=== PATIENT | female | born 1985 | race Caucasian/White ===

== ENCOUNTER 2019-09-07 04:36 | Emergency (ER) | payer MEDICAID ==
[2019-09-07] MEDS ORDERED: KETOROLAC 30 MG/ML VIAL IVP ONE (04:50)
--- NOTE | 2019-09-07 04:56 | Emergency Department Record ---
History of Present Illness - General Chief Complaint: Shortness of breath Stated Complaint: ERNA Time Seen by Provider: 09/07/19 04:49 Source: Patient Mode of Arrival: Ambulatory Limitations: No limitations - History of Present Illness Initial Comments: 34 yo female presents to ED for evaluation of diffuse abdominal pain that began last evening, denies fevers, chills, or recent illness. Patient does report dysuria symptoms, denies nausea, vomiting, or change in stools. Patient denies health problems at her baseline, and denies previous abdominal surgery. MD Complaint: Abdominal pain Onset/Timin -: Hour(s) Location: Diffuse Radiation: None Migration to: No migration Severity: Moderate Quality: Aching Consistency: Constant Improves With: Nothing Worsens With: Nothing Associated Symptoms: Denies other symptoms - Related Data Patient : No Home Medications Medication Instructions Recorded Confirmed Last Taken No Home Med [NO HOME MEDS] 09/07/19 09/07/19 Unknown Allergies Allergy/AdvReac Type Severity Reaction Status Date / Time ibuprofen Allergy ANAPHYLAXIS Verified 09/07/19 04:39 Travel Screening - Travel/Exposure Within Last 30 Days Have you traveled within the last 30 days?: No - Travel/Exposure Within Last Year Have you traveled outside the [place] in the last year?: No - Additonal Travel Details Have you been exposed to anyone with a communicable illness?: No Review of Systems Constitutional: Denies: Chills, Fever, Malaise, Night sweats Eyes: Denies: Eye discharge, Eye pain ENT: Denies: Congestion, Ear pain, Epistaxis Respiratory: Denies: Cough, Dyspnea Cardiovascular: Denies: Chest pain, Dyspnea on exertion Endocrine: Denies: Fatigue, Heat or cold intolerance Gastrointestinal: Reports: Abdominal pain. Denies: Nausea, Vomiting Genitourinary: Denies: Incontinence, Retention Musculoskeletal: Denies: Arthralgia, Back pain Skin: Denies: Bruising, Change in color Neurological: Denies: Abnormal gait, Confusion, Headache, Seizure Psychiatric: Denies: Anxiety Hematological/Lymphatic: Denies: Anemia, Blood Clots Past Medical History - SOCIAL HISTORY Smoking Status: Never smoker Alcohol Use: Rare Drug Use: None - RESPIRATORY Hx Respiratory Disorders: No - CARDIOVASCULAR Hx Cardio Disorders: Yes Comment:: heart murmur - NEURO Hx Neuro Disorders: No - GI Hx GI Disorders: No - Hx Genitourinary Disorders: No - ENDOCRINE Hx Endocrine Disorders: No - MUSCULOSKELETAL Hx Musculoskeletal Disorders: No - PSYCH Hx Psych Problems: No - HEMATOLOGY/ONCOLOGY Hx Hematology/Oncology Disorders: No Family Medical History Any Significant Family History?: No Physical Exam - General General Appearance: Alert, Oriented x3, Cooperative, No acute distress, Other (Smiling, well appearing on examination. Cries however when her abdomen is palpated diffuesely.) Limitations: No limitations - Head Head exam: Atraumatic, Normocephalic, Normal inspection Head exam detail: negative: Abrasion, Contusion, Huber's sign, General tenderness, Hematoma, Laceration - Eye Eye exam: Normal appearance. negative: Conjunctival injection, Periorbital swelling, Periorbital tenderness, Scleral icterus - ENT Ear exam: negative: Auricular hematoma, Auricular trauma Nasal Exam: negative: Active bleeding, Discharge, Dried blood, Foreign body Mouth exam: negative: Drooling, Laceration, Muffled voice, Tongue elevation - Neck Neck exam: Normal inspection. negative: Meningismus, Tenderness - Respiratory Respiratory exam: Normal lung sounds bilaterally. negative: Rales, Respiratory distress, Rhonchi, Stridor - Cardiovascular Cardiovascular Exam: Regular rate, Normal rhythm, Normal heart sounds - GI/Abdominal GI/Abdominal exam: Soft, Tenderness (Mild, diffuse TTP on examination, no rebound, no guarding symptoms are present.). negative: Rebound, Rigid - Rectal Rectal exam: Deferred - exam: Deferred - Extremities Extremities exam: Normal inspection. negative: Pedal edema, Tenderness - Back Back exam: Denies: CVA tenderness (R), CVA tenderness (L) - Neurological Neurological exam: Alert, Normal gait, Oriented X3 - Psychiatric Psychiatric exam: Normal affect, Normal mood - Skin Skin exam: Normal color. negative: Abrasion Type of lesion: negative: abrasion Course Vital Signs 09/07/19 04:42 Temperature 99.1 F Pulse Rate [ 87 Pulse Ox Probe] Respiratory 20 Rate Blood Pressure 137/81 [Left Arm] Pulse Ox 100 - Reevaluation(s) Reevaluation #1: 09/07/19 05:37 Laboratory studies were reviewed and appear grossly unremarkable for an acute process. Reevaluation #2: 09/07/19 06:37 CT Abdomen and Pelvis: Enlarged uterus 4.1x3.4x2.5 cm endometrial mass, recommend follow-up. 1.6 cm right adnexal cyst Fecal impaction Patient was updated on all results Reviewed patient's CT findings and recommended F/U ultrasound with her PCP in 1 week. Patient appears stable for discharge at this time. Medical Decision Making - Lab Data Result diagrams: 09/07/19 05:04 09/07/19 05:04 Disposition Disposition: Discharge Clinical Impression: Abdominal pain Qualifiers: Abdominal location: generalized Qualified Code(s): R10.84 - Generalized abdominal pain Disposition: Home, Self-Care Condition: (2) Stable Instructions: Abdominal Pain (ED) Additional Instructions: Return to ED if your symptoms worsen or if you have any concerns. Ibuprofen 600 mg as directed. Follow-up with your family doctor in 3-5 days as directed for further evaluation and pelvic ultrasound as an outpatient. Forms: Patient Portal Access Time of Disposition: 06:40 Quality - Quality Measures Quality Measures: N/A - Blood Pressure Screening Does Patient Have Any of the Following: No Blood Pressure Classification: Pre-Hypertensive BP Reading Systolic Measurement: 137 Diastolic Measurement: 81 Screening for High Blood Pressure: < Pre-Hypertensive BP, F/U Documented > [G8950] Pre-Hypertensive Follow-up Interventions: Referral to alternative/primary care provider.
[2019-09-07] MEDS ORDERED: 0.9 % SODIUM CHLORIDE 1000ML 1,000 ML IV SCH (05:00)
[2019-09-07 05:10] LABS: ABSOLUTE NEUTROPHIL COUNT 5.42; BASO % 0.3 % (0-6); EOS % 0.1 % (0-6); HEMATOCRIT 36.3 % (35.0-47.0); HEMOGLOBIN 11.2 gm/dl (11.6-16.0); LYMPH % 15.2 % (16-45); MEAN CELL VOLUME 82.9 fl (81-97); MEAN CORPUSCULAR HGB CONC 30.9 g/dl (32-36); MEAN PLATELET VOLUME 10.4 fl (7.4-10.4); MONO % 5.4 % (0-9); PLATELET COUNT 259 K/uL (130-400); RED BLOOD COUNT 4.38 M/uL (3.80-5.40); RED CELL DISTRIBUTION WIDTH 14.6 % (11.5-14.5); URINE APPEARANCE CLEAR; URINE BILIRUBIN NEGATIVE (NEGATIVE); URINE BLOOD NEGATIVE (NEGATIVE); URINE COLOR YELLOW; URINE GLUCOSE (UA) NEGATIVE (NEGATIVE); URINE KETONE 15 mg/dL (NEGATIVE); URINE LEUKOCYTE ESTERASE NEGATIVE (NEGATIVE); URINE NITRITE NEGATIVE (NEGATIVE); URINE PROTEIN NEGATIVE (NEGATIVE); URINE UROBILINOGEN 0.2 E.U./dL (0.20 - 1.00); WHITE BLOOD COUNT W/O DIFF 6.9 K/uL (4.2-12.2)
[2019-09-07 05:12] LABS: MEAN CORPUSCULAR HEMOGLOBIN 25.5 pg (27-33)
[2019-09-07 05:13] LABS: HCG,QUALITATIVE URINE NEGATIVE (NEGATIVE)
[2019-09-07 05:31] LABS: BLOOD UREA NITROGEN 11 mg/dL (6-20); CREATININE 0.6 mg/dL (0.5-0.9); EST GLOMERULAR FILTRATION RATE > 60 mL/min; TOTAL PROTEIN 7.4 g/dL (6.6-8.7)
[2019-09-07 05:32] LABS: LIPASE 33 U/L (13-60)
[2019-09-07 05:33] LABS: GLUCOSE,RANDOM 98 mg/dL (74-109)
[2019-09-07 05:36] LABS: ALB/GLOB RATIO 1.6 (1.1-1.8); ALBUMIN 4.6 g/dL (4.0-5.0); ALKALINE PHOSPHATASE 57 U/L (35-104); ALT/SGPT 10 U/L (<33); AST/SGOT 17 U/L (10.0-35.0)
--- NOTE | 2019-09-07 06:35 | CT SCAN REPORT ---
EXAMINATION: CT Abdomen and Pelvis with IV Contrast EXAM DATE: 09/07/2019 6:23 AM TECHNIQUE: CT imaging of the abdomen and pelvis was performed with intravenous contrast. Coronal and sagittal images were reconstructed. IV Contrast: The amount and type of contrast are recorded in the medical record. INDICATION: abdominal pain COMPARISON: None ENCOUNTER: Not applicable CT ABDOMEN AND PELVIS FINDINGS: Study degraded by respiratory motion Lung Bases: Included extent of the lung bases are clear. Hepatobiliary: The liver has a normal size with a smooth surface. The hepatic and portal veins appear patent. Normal gallbladder Pancreas: The pancreas is normal. Spleen: The spleen is not enlarged. Adrenals: The adrenal glands are normal. Kidneys, Ureters, & Bladder: Both kidneys have a normal size and there is no hydronephrosis. Both ur eters have a normal caliber and the urinary bladder is unremarkable. Gastrointestinal: The stomach and small bowel are normal with no obstruction or inflammation. Partial ly imaged normal appendix. Fecal impaction Reproductive Organs: Enlarged uterus. 4.1 x 3.4 x 2.5 cm endometrial mass indeterminate etiology. Fol low-up pelvic ultrasound as clinically directed. 1.6 cm right adnexal cyst. Lymphatic System: There is no adenopathy within the abdomen or pelvis. Vasculature: Normal caliber abdominal aorta. Peritoneum: No free fluid, free air, or inflammation Abdominal Wall & Musculoskeletal: No suspicious bone lesions. IMPRESSION: 1. Enlarged uterus. 4.1 x 3.4 x 2.5 cm endometrial mass. Follow-up pelvic ultrasound/MRI as clinicall y directed 2. 1.6 cm right adnexal cyst 3. Fecal impaction NOTE: There is a follow-up recommendation in this report. Dictated by: Jordan Astorga MD on 09/07/2019 6:26 AM. .
== END 2019-09-07 06:48 | disposition home or self-care (01) ==
LOC: ER 04:36
DX: R10.84 Generalized abdominal pain (principal); R30.0 Dysuria; R06.02 Shortness of breath; N85.8 Other specified noninflammatory disorders of uterus
CPT/HCPCS: 74177; 80053; 81003; 81025; 83690; 85025; 96374; 99284; J1885; J7030